=== PATIENT | female | born 1985 | race Caucasian/White ===

== ENCOUNTER → 2017-09-11 11:16 | Outpatient (CLI) | payer OTHER, SELFPAY ==
[2017-09-11 15:03] LABS: Fetal Fibronectin Positive
[2017-09-12 10:49] LABS: Strep Grp B PCR POS for Grp B Strep
== END ==
PROVIDERS: Family Provider Specialist; PCP Specialist; Visit Provider Specialist
DX: O30.003 Twin pregnancy, unspecified number of placenta and unspecified number of amniotic sacs, third trimester (principal); O60.03 Preterm labor without delivery, third trimester
CPT/HCPCS: 82731; 87186; 87653

== ENCOUNTER 2017-09-12 12:13 | Outpatient (CLI) | payer OTHER, SELFPAY ==
[2017-09-12] MEDS: BETAMETHASONE 30 MG/5 ML MDV 12 MG IM (13:17)
--- NOTE | 2017-09-12 13:26 | PM.OBTRLD ---
Visit Information Visit Information Date of evaluation: 09/12/17 Primary OB Provider: Latonya Chavis Reason for Evaluation: Yes non-stress test Comments/Additional reasons for admission: Positive fibronectin vaginal probe yesterday. Diamniotic dichorionic twins breech presentation with thinning cervix by transvaginal ultrasound. Patient also complaining of some mild cramping that comes and goes. Review of Systems Review of Systems Patient currently denies any feeling of contractions. She denies any rupture membranes. Good moved Evaluation Evaluation Baseline heart rate: 150 Variability: Moderate (11-25) (Both twins) monitor accelerations: Present (Both twins) monitor decelerations: Absent Uterine Contraction Intensity: Mild (Irritability on monitor patient not feeling contractions) Diagnosis, Plan/Disposition Final Diagnosis (1) 33 weeks gestation of : Current Visit: Yes Status: Acute (2) Dichorionic diamniotic twin in third trimester: Current Visit: Yes Status: Acute Plan/Disposition Plan: Patient was given betamethasone. She is to return tomorrow for another to the betamethasone injection. Precautions for premature labor were reviewed with the patient. Patient also aware of positive group B strep culture. Given the twins are breech she is aware she may need a if she goes into labor at this point. Given her early gestation she understands we will try to transport her to [facility] if she comes in before 35 weeks.
== END 2017-09-12 13:30 | disposition home or self-care (01) ==
LOC: LABOR 13:21 → OB 09-15 10:10
PROVIDERS: Family Provider Specialist; PCP Specialist; Visit Provider Specialist
DX: O60.03 Preterm labor without delivery, third trimester (principal); O32.1XX0 Maternal care for breech presentation, not applicable or unspecified; O30.043 Twin pregnancy, dichorionic/diamniotic, third trimester; Z3A.33 33 weeks gestation of pregnancy; O26.899 Other specified pregnancy related conditions, unspecified trimester
CPT/HCPCS: 59025; 96372; G0378; G0379; J0702

== ENCOUNTER 2017-09-13 02:41 | Inpatient (IN) | payer OTHER, SELFPAY ==
[2017-09-13] MEDS: MAGNESIUM SULFATE 4 GM/100 ML PIGGYBACK IV (03:50)
[2017-09-13] MEDS: CEFAZOLIN 2 GM/100 ML FROZ.PIGGY IV (03:52)
[2017-09-13] MEDS: LACTATED RINGERS 1,000 ML 125 ML IV (03:52)
--- NOTE | 2017-09-13 03:53 | P.HPOB_ITS ---
OB HPI History of Present Illness Chief complaint: EVALUATION OF LABOR Narrative: Gloria Cuevas is a 32 year old female G2 para 1 at 33 weeks and 2/7. Patient had IVF. Final due date is 10/28/2017. Patient has been followed by Dr. Chavis during her and has had routine care of a dichorionic diamniotic twin . care was complicated recently by history of labor with previous . Patient on 09/11 had decreasing cervical length and had a positive fibronectin. Patient was then brought to Labor and delivery floor this afternoon and given a dose of steroids because of thinning cervix. Patient was not in labor at that time. Patient came into Labor and delivery Department early this morning with back pain and regular contractions since 11 o'clock. No bleeding and no rupture of membranes. Patient's last ultrasound showed the baby's to be in breech breech position. On evaluation she was sp regularly every 3-5 minutes. With moderate uncomfortableness. heart tones of babies were reactive at 130s and 140s. Patient denies a significant past history diabetes hypertension heart disease no history of anemia autoimmune disorders. Past surgical history of wisdom teeth removal This was conceived by IVF conception on 02/05 implantation on 02/09. blood work blood type is B positive HSV 1 positive HSV 2-GC chlamydia negative GBS positive and fibronectin positive Meds Home Medications Medication Instructions Recorded Confirmed Type fluconazole [Diflucan] 150 mg PO QDAY #1 tab 06/13/17 Rx Allergies Allergy/AdvReac Type Severity Reaction Status Date / Time amoxicillin [AMOXICILLIN] Allergy Unknown Unverified 07/23/17 12:34 Pertussis Vaccines Allergy Unknown Unverified 07/23/17 12:34 [PERTUSSIS VACCINES] Exam Narrative Exam Narrative: . General: Alert no apparent distress. Affect is appropriate. Sp it is uncomfortable. HEENT: Neck is supple without lymphadenopathy pupils equal round and reactive. Cardio: S1-S2 regular rate and rhythm. Respiratory: Lungs clear to auscultation. Abdomen: Gravid. Extremities: Normal deep tendon reflexes trace edema. : Cervix 3 cm dilated 90% effaced station -1 to 0 intact membranes [place]: Sp regularly every 3-5 minutes with 60 minute contractions moderate and strength. heart tones: Good heart tones baby a 130s to baby B 140s reactive strip category 1. Assessment and Plan Plan: Plan: 31-year-old G2 para 1 at 33 and 2 7th weeks dichorionic diamniotic twin in active labor breech breech position. Patient had IV started send off for a CBC she is GBS positive she is penicillin allergic she will be started on cefazolin 2 g. She was given 1 dose of IM 0.25 mg of terbutaline when she arrived. Will start her on magnesium 4 mg bolus at 2 milligrams/hour. We talked to [facility] OB hospitalist accepting physician who agreed for receiving the patient and contacted [facility] who will transport the patient. Risks benefits and common complications of transportation delivery and labor were discussed with patient and her . Dr. Arce is the accepting physician.
[2017-09-13] MEDS: MAGNESIUM SULFATE 20 GM/500 ML IV.SOLN IV (04:24)
[2017-09-13 04:38] VITALS: BP 104/65
[2017-09-13 05:15] VITALS: BP 104/65; PULSE 114; RESP 20; TEMP 36.3
[2017-09-13 06:39] VITALS: BP 104/65; PULSE 114; RESP 20; TEMP 36.3
== END 2017-09-13 05:00 | disposition short-term general hospital (02) | DRG 778 ==
PROVIDERS: Admitting Provider Family Medicine; Family Provider Specialist; PCP Specialist; Visit Provider Family Medicine
DX: O60.03 Preterm labor without delivery, third trimester (principal); O32.1XX0 Maternal care for breech presentation, not applicable or unspecified; O30.043 Twin pregnancy, dichorionic/diamniotic, third trimester; Z3A.33 33 weeks gestation of pregnancy
CPT/HCPCS: 59050; 76815; 96360; 96372; 99223; G0378; G0379; J0690; J3475

== ENCOUNTER 2017-10-02 17:13 | Inpatient (IN) | payer OTHER, SELFPAY ==
--- NOTE | 2017-10-02 18:02 | PM.OBHP.1 ---
OB HPI Date/Time Date of admission: 10/02/17 Date Patient Seen: 10/02/17 Time Patient Seen: 18:03 History of Present Illness Chief complaint: EVAL OF LABOR : 2 Para: 1 Estimated Date of Delivery: 10/28/17 Estimated Gestational Age (weeks): 36 wee Narrative: Gloria Cuevas is a 32 year old female with dichorionic diamniotic twins at 35 6-5/7 weeks by dates breech presentation in active labor Indications Operative indications ( section): multiple gestation (Breech presentation) History of Present care: good care Dating criteria: LMP confirmed by 1st trimester US (In vitro fertilization) Ultrasounds: normal mid trimester US Obstetrical complications: labor Medical complications: none Preadmission Labs Blood type: B (+) positive -: Antibody screen: negative, GBS status: positive, HBsAG: negative, HIV: negative, HSV 1: positive, HSV 2: negative and RPR/VDLR: negative -: Chlamydia screen: not detected and Gonorrhea screen: not detected -: Rubella: immune HCAB: negative 1 hr GTT: 127 Prior (ies) History: 04/07/2016 vaginal delivery at 40 weeks labor Evaluation Evaluation Baseline heart rate: 150 (Both) Variability: Moderate (11-25) (Both) monitor accelerations: Present (Both) monitor decelerations: Absent (Both) Category of Tracing: I Cervical dilation (cm): 5 Cervical effacement (%): 100 station: -4 [facility] Social History Smoking Status: Never smoker Meds Home Medications Medication Instructions Recorded Confirmed Type fluconazole [Diflucan] 150 mg PO QDAY #1 tab 06/13/17 Rx Allergies Allergy/AdvReac Type Severity Reaction Status Date / Time amoxicillin [AMOXICILLIN] Allergy Unknown Unverified 07/23/17 12:34 Pertussis Vaccines Allergy Unknown Unverified 07/23/17 12:34 [PERTUSSIS VACCINES] Review of Systems Review of Systems Patient's review of system is negative for concerns. Exam Vital Signs (past 8 hours): HEENT exam within normal limits. Heart is regular rate and rhythm no S3-S4 or murmurs. Lungs are clear to auscultation and percussion. Gravid uterus not that is nontender. Advanced cervical dilation. Assessment and Plan (1) Dichorionic diamniotic twin in third trimester: Current visit: No Status: Acute (2) 36 weeks gestation of : Current visit: Yes Status: Acute (3) Premature labor affecting second : Current visit: Yes Status: Acute Plan: Plan: Patient with dichorionic di amniotic twin gestation with breech presentation at 36-,5/7 weeks by dates with advanced cervical dilation. Primary low-transverse section
[2017-10-02] MEDS: LACTATED RINGERS 1,000 ML 999 ML IV (19:00)
[2017-10-02] MEDS: CLINDAMYCIN 900 MG/50 ML PIGGYBACK 50 MG IV (19:22)
--- NOTE | 2017-10-02 19:31 | SUR.OPER ---
Supine on Padded OR bed, head on pillow, safety belt at thigh, arms secured on padded arm boards at <90 degrees abduction. Bump under right buttock. Legs uncrossed with pillow under knees, gel pad to heels, tape over blanket to lower legs.
[2017-10-02] MEDS: SODIUM CHLORIDE 0.9% IV (19:37)
[2017-10-02] MEDS: GENTAMICIN IV (19:37)
--- NOTE | 2017-10-02 19:52 | PM.PREOP ---
Pre-operative Note Interval Note Pre-op Check: History & Physical exam performed today
[2017-10-02] MEDS: LACTATED RINGERS 1,000 ML 42 ML IV (20:15)
--- NOTE | 2017-10-02 20:34 | SUR.OPER ---
Preoperative heart tones for Baby A=127; Baby [id number]. Live female Baby [id number]; female Baby L=[id number].
[2017-10-02 21:02] VITALS: BP 105/57; PULSE 60; RESP 12; TEMP 36.1; O2SAT 99
--- NOTE | 2017-10-02 21:03 | SUR.OPER ---
APGARS Baby A: , Dr. Wilkes, RT and L&D nurses in attendance (see records) APGARS Baby B: 12/21
[2017-10-02 21:07] VITALS: BP 114/61; PULSE 64; RESP 14; O2SAT 99
[2017-10-02 21:13] VITALS: BP 100/59; PULSE 58; RESP 12; O2SAT 99
[2017-10-02 21:15] LABS: Hepatitis B Surface Antigen NEGATIVE s/c (NEGATIVE); Rubella Antibody IgG 17.7 IU/mL (>15)
[2017-10-02 21:18] VITALS: BP 102/56; PULSE 58; RESP 10; O2SAT 99
--- NOTE | 2017-10-02 21:20 | PM.OP.1 ---
Operative Date/Time/Diagnoses - Date of procedure: 10/02/17 Time of procedure: 21:20 Pre-op diagnosis: Dichorionic diamniotic twins in active labor with breech, breech presentation Post-op diagnosis: same Procedure & Clinicians Procedure: Primary low-transverse section Same procedure as scheduled: Yes Indications: Dichorionic diamniotic twins in breech presentation in active labor Surgeon: Latonya Chavis Gas Leak Inspector: Demetrio Rush Anesthesia Type: Spinal Operative Notes Findings: Normal tubes, ovaries, and uterus. Viable female infants. Baby B's Apgars were 9 and 9, weight 4 lb 15 oz. Baby A's Apgars were 7, 3, 7. Weight is pending. Closure Type: primary Specimen(s): none sent Applied: catheter Estimated Blood Loss (mL): 450 Blood products transfused: none Procedure in detail: The patient was brought to the operating room where she underwent a spinal for anesthesia. She was placed in a supine position with a left lateral tilt. A Canela catheter was placed. Pulsatile stockings were placed and functional throughout the case. Gentamicin and clindamycin given IV prior to the incision. Warming was in place. The patient was prepped and draped in usual sterile fashion. A low transverse incision was made with a scalpel and the incision was carried down to the fascial layer which was incised transversely with scissors. The midline attachments are superiorly and inferiorly. Some bleeding was controlled Bovie. The rectus muscles were in the midline and the peritoneal incision was made with no damage to internal structures. The peritoneum was incised and superiorly and inferiorly. Bladder blade was placed and a bladder flap was developed and the bladder held away from the lower uterine segment. An incision was made in the uterus with the scalpel and the incision was extended with stretching. The baby's buttocks was elevated out of the abdomen and with fundal pressure the baby was delivered to the shoulders and the arms delivered. The head delivered easily. The infant was bulb suctioned for clear fluid and handed off to the warmer. The 2nd amniotic sac was broken and the feet grasped. The infant was delivered to the shoulders. The was rotated and the arms released and then the head delivered easily. Cord blood was collected from both cords. The 2 placentas were delivered. The uterus was cleaned with clean laps. The uterine incision was closed in 2 layers of 0 chromic suture the first a running locking layer the second an imbricating layer. The bladder peritoneum was repaired with 2-0 Polysorb suture. The gutters were cleaned of any remaining fluids and ovaries and tubes were observed to be normal. Adequate hemostasis was noted. The perineum was closed with 2-0 Polysorb suture. The fascia layer was closed with 0 Polysorb suture with 2 stitches. The incision was irrigated and adequate hemostasis noted. The incision was closed with interrupted 3-0 Polysorb sutures and then a subcuticular stitch of 4-0 Polysorb suture. Steri-Strips were placed. The uterus was massaged to remove any clots. The patient went to recovery room in good condion. Counts of instruments and sponges were correct. Complications: none Condition: stable Disposition: PACU
[2017-10-02 21:23] VITALS: BP 100/58; PULSE 57; RESP 10; TEMP 36; O2SAT 99
[2017-10-02 21:25] LABS: HIV 1 and 2 Antibody NEGATIVE (NEGATIVE)
[2017-10-02 21:27] LABS: Add Manual Diff / Slide Review NO; Basophils Percent Auto 0.4 % (0-2); Eosinophils Percent Auto 0.7 % (2-4); Hematocrit 36.7 % (36-46); Hemoglobin 12.5 g/dL (12.0-16.0); Lymphocytes Percent Auto 28.5 % (25-40); Mean Corpuscular HGB Conc 34.1 % (30-36); Mean Corpuscular Hemoglobin 31.4 PG (26-34); Mean Corpuscular Volume 92.1 fL (80-100); Monocytes Percent Auto 8.3 % (3-14); Neutrophils Absolute Auto 5500 /uL (3000-5900); Neutrophils Percent Auto 62.1 % (50-75); Platelet Count 130 X10^3/uL (150-400); Red Blood Cell Count 3.99 X10^6/uL (4.0-5.2); Red Cell Distribution Width 12.9 % (11.6-14.8); White Blood Cell Count 8.9 X10^3/uL (4.5-11.0)
[2017-10-02 21:33] LABS: Hep C Virus Ab w/Reflex Quant NEGATIVE s/c (NEGATIVE)
[2017-10-02] MEDS: LACTATED RINGERS 1,000 ML 100 ML IV (21:49)
[2017-10-03] MEDS: KETOROLAC 30 MG/ML VIAL IV ×3 (03:13→15:03)
[2017-10-03] MEDS: LANOLIN OINT 7 GM 1 APPLIC TOP (03:25)
[2017-10-03 05:36] LABS: Add Manual Diff / Slide Review NO; Basophils Percent Auto 0.1 % (0-2); Hematocrit 25.2 % (36-46); Hemoglobin 8.5 g/dL (12.0-16.0); Lymphocytes Percent Auto 11.4 % (25-40); Mean Corpuscular HGB Conc 33.7 % (30-36); Mean Corpuscular Hemoglobin 31.4 PG (26-34); Mean Corpuscular Volume 93.2 fL (80-100); Monocytes Percent Auto 4.4 % (3-14); Neutrophils Absolute Auto 9300 /uL (3000-5900); Neutrophils Percent Auto 84.1 % (50-75); Platelet Count 108 X10^3/uL (150-400); Red Blood Cell Count 2.71 X10^6/uL (4.0-5.2); Red Cell Distribution Width 12.7 % (11.6-14.8); White Blood Cell Count 11.1 X10^3/uL (4.5-11.0)
[2017-10-03 08:35] VITALS: BP 114/79
[2017-10-03] MEDS: PRENATAL VIT,CALC/IRON/FOLIC 1 TABLET 1 TAB PO (08:59)
[2017-10-03] MEDS: DOCUSATE 250 MG CAPSULE PO (08:59)
--- NOTE | 2017-10-03 09:22 | PM.OBPN.1 ---
Subjective - OB Patient comments: pain well controlled and tolerating diet [place] baby status: doing well (Neither is feeding well) Date Patient Seen: 10/03/17 Time Patient Seen: 07:23 Exam Vital Signs (past 8 hours): Vital Signs - 8 hr Pulse is 71 temperature 97.6? 10/03/17 08:35 Blood Pressure 114/79 Pulse Oximetry 99 Oxygen Delivery Method Room Air Narrative Exam Narrative: Abdomen is soft, nontender. Uterus is firm, at U, not tender. Dressing is clean, dry, intact. Mild lochia. Extremities with trace edema, nontender. Pulsatile stockings are in place. Canela has not been removed yet. GI Palpation: soft Objective Labs Result Diagrams: 10/03/17 05:14 Labs: Laboratory Results - last 24 hr 10/02/17 10/02/17 10/02/17 18:15 18:25 19:51 WBC 8.9 RBC 3.99 L Hgb 12.5 Hct 36.7 MCV 92.1 MCH 31.4 MCHC 34.1 RDW 12.9 Plt Count 130 L Neut % (Auto) 62.1 Lymph % (Auto) 28.5 [place] % (Auto) 8.3 Eos % (Auto) 0.7 L Baso % (Auto) 0.4 Neut # (Auto) 5500 Hep Bs Antigen Hepatitis C Antibody HIV 1&2 Antibody Negative Rubella Antibody Blood Type B Positive Antibody Screen Negative 10/02/17 10/02/17 10/02/17 19:51 19:51 Unknown WBC Cancelled RBC Cancelled Hgb Cancelled Hct Cancelled MCV Cancelled MCH Cancelled MCHC Cancelled RDW Cancelled Plt Count Cancelled Neut % (Auto) Cancelled Lymph % (Auto) Cancelled [place] % (Auto) Cancelled Eos % (Auto) Cancelled Baso % (Auto) Cancelled Neut # (Auto) Cancelled Hep Bs Antigen Negative Hepatitis C Antibody Negative HIV 1&2 Antibody Rubella Antibody 17.7 Blood Type Antibody Screen 10/03/17 05:14 WBC 11.1 H RBC 2.71 L Hgb 8.5 L Hct 25.2 L MCV 93.2 MCH 31.4 MCHC 33.7 RDW 12.7 Plt Count 108 L Neut % (Auto) 84.1 H D Lymph % (Auto) 11.4 L [place] % (Auto) 4.4 Eos % (Auto) 0.0 L Baso % (Auto) 0.1 Neut # (Auto) 9300 H Hep Bs Antigen Hepatitis C Antibody HIV 1&2 Antibody Rubella Antibody Blood Type Antibody Screen Assessment & Plan (1) Dichorionic diamniotic twin in third trimester: Status: Acute Current Visit: No (2) 36 weeks gestation of : Status: Acute Current Visit: Yes (3) Premature labor affecting second : Status: Acute Current Visit: Yes (4) Delivery by section for breech presentation: Status: Acute Assessment and plan: Patient is approximately 12 hr post section for twin gestation breech presentation in labor. Patient is stable. Although there is some difficulty with the babies are stable. Patient is hematocrit is 25, will start iron therapy. Routine post section care. Current Visit: Yes Time Spent With Patient Total time spent is greater than 50% in coordination of care (as documented) at patient's floor/unit and/or counseling patient: less than 15 minutes
[2017-10-03] MEDS: OXYCODONE/ACETAMINOPHEN 5/325 TABLET 2 TAB PO ×3 (10:41→18:49)
[2017-10-03] MEDS: IBUPROFEN 600 MG TABLET PO (22:09)
[2017-10-04] MEDS: OXYCODONE/ACETAMINOPHEN 5/325 TABLET 2 TAB PO ×6 (00:40→23:18)
[2017-10-04] MEDS: IBUPROFEN 600 MG TABLET PO ×4 (04:50→23:19)
[2017-10-04] MEDS: DOCUSATE 250 MG CAPSULE PO (08:22)
[2017-10-04] MEDS: PRENATAL VIT,CALC/IRON/FOLIC 1 TABLET 1 TAB PO (08:22)
[2017-10-04] MEDS: FERROUS GLUCONATE 324 MG TABLET PO (08:22)
--- NOTE | 2017-10-04 10:51 | PM.OBPN.1 ---
Subjective - OB Patient comments: incisional pain baby status: doing well [place] feeding status: exclusively breast feeding Narrative: Patient denies any headaches or scotomata. She is ambulatory. She has a little more incisional pain today but it is tolerable. Her bleeding is minimal. She is tolerating a regular diet. Date Patient Seen: 10/04/17 Time Patient Seen: 10:52 Exam Vital Signs (past 8 hours): Oxygen Delivery Method Room Air Narrative Exam Narrative: Blood pressure 99/58, pulse is 71, temperature 98.2? Abdomen is soft, nontender. Uterus is firm, at U, nontender. Dressing is clean dry and intact. Mild lochia. Extremities without edema, nontender. Objective Labs Result Diagrams: 10/03/17 05:14 Assessment & Plan (1) Dichorionic diamniotic twin in third trimester: Status: Acute Current Visit: No (2) 36 weeks gestation of : Status: Acute Current Visit: Yes (3) Premature labor affecting second : Status: Acute Current Visit: Yes (4) Delivery by section for breech presentation: Status: Acute Current Visit: Yes Plan day: 2 plan OB: routine postop care Time Spent With Patient Total time spent is greater than 50% in coordination of care (as documented) at patient's floor/unit and/or counseling patient: less than 15 minutes
[2017-10-05] MEDS: OXYCODONE/ACETAMINOPHEN 5/325 TABLET 2 TAB PO ×2 (04:27→09:14)
[2017-10-05] MEDS: PRENATAL VIT,CALC/IRON/FOLIC 1 TABLET 1 TAB PO (09:13)
[2017-10-05] MEDS: DOCUSATE 250 MG CAPSULE PO (09:14)
[2017-10-05] MEDS: IBUPROFEN 600 MG TABLET PO (09:14)
--- NOTE | 2017-10-05 11:37 | P.DS_ITS ---
Discharge Providers Date of admission: 10/02/17 22:05 Primary care physician: Latonya Chavis MD Consults: 10/02/17 22:05 Consult to Dean For [employer] Routine Comment: Discharge provider: Latonya Chavis MD Summary Date Patient Seen: 10/05/17 Time Patient Seen: 11:32 Hospital Course: Patient arrived on Labor and delivery in active labor. She had a known dichorionic diamniotic twin gestation with breech presentation. She underwent a primary low-transverse section. She did well . Her pain was under control with pain medicine. She is breast-feeding without difficulty. She is urinating and ambulating well. She is tolerating a regular diet. No signs or symptoms of preeclampsia. She is passing gas. Patient's blood pressure 99/59, pulse of 83, temperature 98.6?. Patient's abdomen is soft, nontender. Uterus is firm, at U, appropriately tender. Incision is clean, dry, and intact. Mild lochia. Extremities with no edema, nontender. Peripartum Data Infant Delivery Method: Section Procedures: Primary low-transverse section complications: none Discharge Diagnosis (1) Delivery by section for breech presentation: Status: Acute (2) Dichorionic diamniotic twin in third trimester: Status: Acute (3) 36 weeks gestation of : Status: Acute (4) Premature labor affecting second : Status: Acute Status at Discharge Functional status at discharge: independent ambulation Overall status at discharge: patient is progressing back to baseline Time Spent with Patient Total time spent providing and/or coordinating discharge services: Less than 30 minutes Objective Labs Result Diagrams: 10/03/17 05:14 Discharge Plan Discharge Plan Patient Disposition: Home, Self-Care Discharge Med Rec/Prescriptions Prescriptions: New oxycodone-acetaminophen 5-325 mg Tablet 2 tab PO Q4HR PRN (Reason: Pain, Severe) Qty: 40 RF: 0 ibuprofen 600 mg Tablet 600 mg PO Q6HR PRN (Reason: As Needed For Fever/Mild Pain) Qty: 30 RF: 0 docusate sodium 250 mg Capsule 250 mg PO DAILY Qty: 30 RF: 0 ferrous gluconate 324 mg (38 mg iron) Tablet 324 mg PO DAILY Qty: 30 RF: 0 Continue 1 tab tablet 1 tab PO DAILY RF: 0 omega 8-byc-yus-fish oil [Fish Oil] 1,000 mg (120 mg-180 mg) Capsule 1 tab PO DAILY RF: 0 Follow up/Referrals: Latonya Chavis MD [Primary Care Provider] - 1 Week Provider Discharge Instructions Diet: Diet as Tolerated Wound Care Report to your healthcare provider any signs of infection, such as:: chills, fever, increased pain and unusual drainage Discharge Data Admit Date/Time: 10/02/17 22:05
[2017-10-05 13:40] VITALS: BP 114/79; PULSE 57; RESP 10; TEMP 36
[2017-10-08 08:50] LABS: Rapid Plasma Reagin NON-REACTIVE
== END 2017-10-05 13:59 | disposition home or self-care (01) | DRG 765 ==
PROVIDERS: Admitting Provider Specialist; Family Provider Specialist; PCP Specialist; Visit Provider Specialist
PROC: 10D00Z1 Extraction of Products of Conception, Low, Open Approach (ICD-10-PCS; CPT 59514; principal; 2017-10-02 20:00)
DX: O60.14X0 Preterm labor third trimester with preterm delivery third trimester, not applicable or unspecified (principal); O30.043 Twin pregnancy, dichorionic/diamniotic, third trimester; O32.1XX0 Maternal care for breech presentation, not applicable or unspecified; Z3A.36 36 weeks gestation of pregnancy; Z37.2 Twins, both liveborn
CPT/HCPCS: 36415; 59050; 59510; 59514; 80055; 85025; 86703; 86803; 86850; 86900; 86901; G0378; G0379; J1885; J2274; J2590

== ENCOUNTER → 2021-09-04 12:34 | Outpatient (CLI) | payer OTHER, SELFPAY ==
[2021-09-04 13:45] LABS: Add Manual Diff / Slide Review NO; Basophils Absolute Auto 0 /uL (0-100); Basophils Percent Auto 0.3 % (0-2); Eosinophils Absolute Auto 100 /uL (0-450); Hematocrit 38.4 % (36-46); Lymphocytes Absolute Auto 2300 /uL (1100-4500); Lymphocytes Percent Auto 22.4 % (25-40); Mean Corpuscular Hemoglobin 29.9 PG (26-34); Mean Corpuscular Volume 88.1 fL (80-100); Monocytes Absolute Auto 500 /uL (0-900); Monocytes Percent Auto 5.1 % (3-14); Neutrophils Absolute Auto 7200 /uL (1500-7000); Neutrophils Percent Auto 71.2 % (50-75); Platelet Count 215 X10^3/uL (150-400); Red Blood Cell Count 4.36 X10^6/uL (4.0-5.2); Red Cell Distribution Width 14.4 % (11.6-14.8); White Blood Cell Count 10.2 X10^3/uL (4.5-11.0)
[2021-09-05 05:43] LABS: RPR Screen Non Reactive (Non Reactive)
[2021-09-05 08:04] LABS: Varicella IgG Antibody 899 index (Immune >165)
[2021-09-06 16:49] LABS: Hepatitis B Surface Antigen NEGATIVE s/c (NEGATIVE); Rubella Antibody IgG 28.2 IU/mL (>15)
[2021-09-06 17:07] LABS: HIV 1 & 2 Ab/Ag 4th Gen Combo NEGATIVE (NEGATIVE); Hep C Virus Ab w/Reflex Quant NEGATIVE s/c (NEGATIVE)
== END ==
PROVIDERS: Family Provider Specialist; Referring Provider Obstetrics & Gynecology; Visit Provider Obstetrics & Gynecology
DX: Z34.81 Encounter for supervision of other normal pregnancy, first trimester (principal)
CPT/HCPCS: 36415; 80055; 86787; 86803; 86850; 86900; 86901; 87389

== ENCOUNTER → 2021-10-04 18:57 | Outpatient (ROUT) | payer OTHER, SELFPAY ==
[2021-10-06 09:49] LABS: Candida species Negative (Negative); Gardnerella vaginalis Negative (Negative); Trichomoas vaginalis Negative (Negative)
== END ==
PROVIDERS: Family Provider Specialist; Visit Provider Physician Assistant Medical
DX: Z34.82 Encounter for supervision of other normal pregnancy, second trimester (principal); Z3A.16 16 weeks gestation of pregnancy; O26.852 Spotting complicating pregnancy, second trimester
CPT/HCPCS: 87480; 87510; 87660

== ENCOUNTER → 2021-10-29 12:14 | Outpatient (CLI) | payer OTHER, SELFPAY ==
--- NOTE | 2021-10-29 12:35 | DI.US.S_ITS ---
PROCEDURE: US OB >= 14 WEEKS FETUS INDICATIONS: ANATOMY OUTSIDE/PRIOR DATING DATA: Last menstrual period (LMP): Unknown. LMP-based estimated date of delivery (MORIAH): Unknown. First dating scan (date and location): 09/04/2021. Estimated date of delivery (MORIAH) from first dating scan: 03/14/2022. TECHNIQUE: Real-time scanning was performed of the fetus, with image documentation and biometric measurements. COMPARISON: [facility], , OB >= 14 WEEKS FETUS, 10/02/2017, 17:04. [facility], , OB <= 14 WEEKS FETUS, 09/04/2021, 12:25. FINDINGS: General: A single living intrauterine gestation is present. Presentation: Transverse. Placenta: Placental position is posterior, with appearance of complete previa previa. Amniotic fluid index: 17.1 cm, normal range is 5-24 cm. Single deepest vertical pocket is 5.7 cm. heart rate: 145 beats per minute. Maternal cervical canal: 4.5 cm long. Normal lower limit is 2.5 cm. biometrics: Biparietal diameter: 5 cm 21 weeks 0 days Head circumference: 18.4 cm 20 weeks 5 days Abdominal circumference: 15.6 cm 20 weeks 5 days Femur length: 3.4 cm 20 weeks 6 days Composite gestational age from initial scan: 20 weeks 4 days Composite gestational age from present scan: 20 weeks 6 days Estimated weight and percentile: 376 g 56 percentile Anatomic survey: Neuro: Ventricles are non-dilated at less than 10 mm. Cisterna magna is normal at 3-11 mm. Cerebellum is normal in size and morphology. Nuchal skin fold: Normal at less than 6 mm between 14-21 weeks gestational age. Face: Nose and lips, facial profile are normal. Spine: No evidence for spina bifida. Heart: 4-chambered heart is present, with normal ventricular outflow tracts. Diaphragm: Diaphragm is intact. Stomach: Left-sided stomach is present. Kidneys: No hydronephrosis. Normal is less than 5 mm in 2nd trimester, less than 7 mm in 3rd trimester. Cord: 3-vessel cord has orthotopic insertion. Bladder: Normal in size. Extremities: All 4 extremities identified. IMPRESSION: Single live intrauterine with ultrasound gestational age today of 20 weeks 6 days. Anatomy is within normal limits. Complete placental previa is noted. Close interval follow-up is recommended. We strive to produce accurate, complete, and clear reports of imaging services. To assist us in improving patient care, this report was composed using standard report templates and voice recognition software. Therefore, it may contain abnormal punctuation, insertions and/or omissions. Occasional wrong-word or sound-alike substitutions may occur. Though we review the report and make efforts to correct it, we do recommend that the report be read carefully in proper context to recognize any text inaccuracies. Dictated by: Zayda Beard M.D. on 10/29/2021 at 16:56 Approved by: Zayda Beard M.D. on 10/29/2021 at 16:59
== END ==
PROVIDERS: Family Provider Specialist; Referring Provider Obstetrics & Gynecology; Visit Provider Obstetrics & Gynecology
DX: O44.02 Complete placenta previa NOS or without hemorrhage, second trimester (principal); Z3A.20 20 weeks gestation of pregnancy
CPT/HCPCS: 76811

== ENCOUNTER → 2021-12-04 10:24 | Outpatient (CLI) | payer OTHER, SELFPAY | PROVIDERS: Family Provider Specialist; Visit Provider Obstetrics & Gynecology | DX: Z34.82 Encounter for supervision of other normal pregnancy, second trimester (principal); Z3A.25 25 weeks gestation of pregnancy | CPT/HCPCS: 87086 ==

== ENCOUNTER → 2022-02-21 13:50 | Outpatient (CLI) | payer OTHER, SELFPAY ==
[2022-02-22 15:27] LABS: Strep Grp B PCR NEG for Grp B Strep
== END ==
PROVIDERS: Family Provider Specialist; Visit Provider Obstetrics & Gynecology
DX: Z34.83 Encounter for supervision of other normal pregnancy, third trimester (principal); Z3A.36 36 weeks gestation of pregnancy
CPT/HCPCS: 87653

== ENCOUNTER 2022-03-08 07:53 | Inpatient (IN) | payer OTHER, SELFPAY ==
[2022-03-08] VITALS (12 sets, daily range): BP systolic 83–109; BP diastolic 49–72; PULSE 63–81; RESP 14–22; TEMP 36.2–36.8; O2SAT 94–98
[2022-03-08 09:22] LABS: Add Manual Diff / Slide Review NO; Basophils Absolute Auto 0 /uL (0-100); Basophils Percent Auto 0.5 % (0-2); Eosinophils Absolute Auto 200 /uL (0-450); Eosinophils Percent Auto 1.5 % (2-4); Hematocrit 36.8 % (36-46); Hemoglobin 12.4 g/dL (12.0-16.0); Lymphocytes Absolute Auto 2200 /uL (1100-4500); Mean Corpuscular HGB Conc 33.8 % (30-36); Mean Corpuscular Hemoglobin 30.3 PG (26-34); Mean Corpuscular Volume 89.7 fL (80-100); Monocytes Absolute Auto 700 /uL (0-900); Monocytes Percent Auto 6.5 % (3-14); Neutrophils Absolute Auto 7400 /uL (1500-7000); Neutrophils Percent Auto 70.5 % (50-75); Platelet Count 160 X10^3/uL (150-400); Red Cell Distribution Width 14.7 % (11.6-14.8); White Blood Cell Count 10.5 X10^3/uL (4.5-11.0)
[2022-03-08 09:38] LABS: COVID19 -Nasal RAPID Negative (Negative)
--- NOTE | 2022-03-08 09:48 | P.HPOB_ITS ---
OB HPI Date/Time Date of admission: 03/08/22 Date Patient Seen: 03/08/22 Time Patient Seen: 09:49 History of Present Condition Chief complaint: induction MORIAH Calculator Estimated Delivery Date Method Current WG Current Estimate 03/16/22 Manual 38w 6d Based on em bryo transfer Other Estimates 03/14/22 Ultrasound #1 39w 1d 03/21/22 Conception 38w 1d Estimated Gestational Age (weeks): 39 : 3 Para: 2 care: initiated at week # (12), number of visits (7) and pounds weight gain (40) Dating criteria OB: LMP confirmed by 1st trimester US Ultrasounds: normal 1st trimester US and normal mid trimester US Obstetrical complications: none Medical complications OB: none Indications Operative indications ( section): previous uterine surgery Preadmission Labs Last OB Lab Results: Blood Type B Positive 09/04/21 12:51 Antibody Screen Negative 09/04/21 12:51 Hematocrit 36.8 % (36-46) 03/08/22 08:25 Hemoglobin 12.4 g/dL (12.0-16.0) 03/08/22 08:25 Hepatitis B Surface Antigen Negative s/c (NEGATIVE) 09/04/21 12 :51 Hepatitis C Antibody Negative s/c (NEGATIVE) 09/04/21 12:51 Rubella Antibody 28.2 IU/mL (>15) 09/04/21 12:51 Varicella-Zoster IgG Antibody 899 index (Immune >165) 09/04/21 12:51 Glucose 1 Hour 127 mg/dL (76-139) 08/18/17 12:08 Group B Streptococcus (PCR) Neg for grp b strep 02/21/22 13:50 -: Chlamydia screen: negative, Gonorrhea screen: negative and Urine: negative -: PAP smear: Normal External Labs -: Urine: negative Prior (ies) Past Pregnancies Del. Date GA/Weeks Labor Lgth Wt Sex Route Outcome Anesthesia Place Delv Breastfeed Preg Comp Name 04/07/16 39 1 6 lb 8 oz Female vaginal live - full term none IH labor Ajay 10/02/17 36 5 lb Female live - spinal IH labor multiple gestation Grace, Aneta Evaluation Evaluation Baseline heart rate: 135 Variability: Moderate (11-25) monitor accelerations: Present Monitor Decelerations: Absent PFSH Medical History (Updated 02/27/22 @ 22:18 by Sallie Horn MD) Anemia Infertility Premature labor in third trimester Vaginal delivery Surgical History (Updated 09/04/21 @ 15:39 by Sallie Horn MD) Anesthesia Delivery by section for breech presentation (~10/02/17) [place] teeth extracted (~2008) Family History (Updated 08/27/21 @ 23:09 by Maricruz Frank) Father Diabetes mellitus Heart disease Mother Pancreatic cancer Grandfather Colon cancer Grandmother Pneumonia Grandfather Heart disease Social History marital status: number of children: 3 household members: spouse and children lives independently: Yes housing: house pets and animals: Yes (Wears gloves and particle mask when changing litter or cleaning bird cage.) education level: college (Associate's degree) occupational status: employed ([employer]) current occupational exposures/hazards: No seatbelt use: always water heater temp set < 120 deg: Yes (Will check and change if needed.) working smoke detector in home: Yes fire extinguisher in home: Yes carbon monox detector in home: Yes firearms in home: Yes firearms unloaded and locked: Yes do you feel safe at home: Yes Smoking Status: Never smoker second hand exposure: No alcohol intake: former substance use type: does not use during the past year weight has: decreased > 10 lbs well-balanced diet: daily or most days daily servings fruits/ve-4 caffeine: Yes Type(s) of exercise: walking Meds Home Medications and Allergies Home Medications Medication Instructions Recorded Confirmed Type 1 tab PO DAILY 10/02/17 02/28/22 History omega 7-hxz-rqv-fish oil 1,000 mg 1 tab PO DAILY 10/02/17 02/28/22 History (120 mg-180 mg) capsule (Fish Oil) Allergies Allergy/AdvReac Type Severity Reaction Status Date / Time Pertussis Vaccines Allergy Severe Seizure Verified 02/28/22 14:53 [PERTUSSIS VACCINES] amoxicillin [AMOXICILLIN] Allergy Intermediate Hives Verified 02/28/22 14:53 cefazolin [From Ancef] Allergy Intermediate Hives Verified 02/28/22 14:53 OB Exam Narrative Exam Narrative: Generally: Patient is sitting up in bed, no acute distress Lungs: Clear to auscultation bilaterally Cardiovascular: Regular rate and rhythm Fundal height: 39 cm Estimated weight: 7-1/2 lb Abdomen: Well-healed Pfannenstiel Extremities: No edema Objective Labs Result Diagrams: 03/08/22 08:25 Labs: Laboratory Results - last 24 hr 03/08/22 03/08/22 08:08 08:25 WBC 10.5 RBC 4.10 Hgb 12.4 Hct 36.8 MCV 89.7 MCH 30.3 MCHC 33.8 RDW 14.7 Plt Count 160 Neut % (Auto) 70.5 Lymph % (Auto) 21.0 L Iron % (Auto) 6.5 Eos % (Auto) 1.5 L Baso % (Auto) 0.5 Neut # (Auto) 7400 H Lymph # (Auto) 2200 Iron # (Auto) 700 Eos # (Auto) 200 Baso # (Auto) 0 SARS-CoV-2 (PCR) Negative Assessment and Plan Assessment and Plan Assessment and Plan narrative: Assessment: 36-year-old 3 para 1103 with a previous section Estimated gestational age of 39 weeks Plan: Repeat low-transverse section The risks, benefits, and alternatives to the procedure were explained to the patient. The risks including bleeding, infection, injury to the bowel, bladder, or ureters. She understands these risks and agrees to proceed. A full par Q was held and consent form was signed. Time Spent with Patient Total time spent with greater than 50% in coordination of care (as documented) at patient's floor/unit and/or counseling patient:: less than 15 minutes
--- NOTE | 2022-03-08 09:53 | PM.PREOP ---
Pre-operative Note COVID-19 COVID-19 status: Negative Result date/Date tested (Pos, Neg/Pending): 03/08/22 Criteria for continued procedure: Non-surgical alternatives not available or appropriate per current SOC Interval Note History & Physical reviewed/Exam performed by Physician: Yes Changes to H&P: No H&P completed within 30 days and has changed as indicated here:: 03/08/22
[2022-03-08] MEDS: CEFAZOLIN 2 GM/100 ML PREMIX 100 ML IV (10:00)
--- NOTE | 2022-03-08 10:32 | SUR.OPER ---
Supine on padded OR bed, head on pillow, arms secured on padded arm boards at <90 degrees abduction, legs uncrossed, safety belt at thigh, bump under right flank
--- NOTE | 2022-03-08 11:24 | P.OP_ITS ---
Operative Date/Time/Diagnoses Date of procedure: 03/08/22 Time of procedure: : Pre-op diagnosis: Estimated gestational age of 39 weeks Previous section Post-op diagnosis: same Procedure & Clinicians Procedure: Repeat low-transverse section Same procedure as scheduled: Yes Indications: Estimated gestational age of 39 weeks Previous section Surgeon: Sallie Horn Click Yes if Unassisted: No Tractor Trailer Truck Driver: Daniel Manning Reason for Tractor Trailer Truck Driver: The laundry assistant was necessary to retract upon entry into the abdomen and uterus. He assisted with delivery of the infant with fundal pressure. He assisted with closure by retracting and clipping suture. He closed the contralateral fascia. Anesthesia Type: Spinal (With Duramorph) Operative Notes Findings: Live female in the ERIN presentation Normal tubes and ovaries Normal uterus Closure Type: primary Specimen(s): cord blood and placenta Intraoperative meds administered: Duramorph, Ketorolac and Pitocin Applied: Catheter (To continuous drainage) Estimated Blood Loss (mL): 500 Blood products transfused: none Procedure in detail: The patient was taken to the operating room where she was placed in the seated position. Spinal anesthesia with Duramorph was administered. The patient was then placed in the dorsal supine position with a leftward tilt. She was prepped and draped in the usual sterile fashion. A timeout was performed. After spinal analgesia was found to be adequate, a Pfannenstiel skin incision was made through the previous incision and carried through to the underlying layer fascia. The fascia was nicked in the midline, and the incision extended bilaterally with the Rodriguez scissors. The superior aspect of the fascial incision was grasped with a Deandra clamps, elevated, and the underlying rectus muscles dissected off sharply and bluntly. Attention was then turned to the inferior aspect of this incision which in a similar fashion was grasped with a [place] clamps, elevated, and the underlying rectus muscles dissected off sharply and bluntly. The rectus muscles were in the midline. The peritoneum was identified, grasped between 2 hemostats, and entered sharply with the Metzenbaum scissors. This incision was extended superiorly and inferiorly with good visualization of the bladder. The bladder blade was inserted. The vesicouterine peritoneum was identified, grasped with the pickup, and entered sharply with the Metzenbaum scissors. This incision was extended bilaterally, and the bladder flap was created digitally. The bladder blade was reinserted. The lower uterine segment was incised in a transverse fashion with the scalpel. Upon entering the amniotic sac there was moderate amount of clear amniotic fluid. The infant's head was delivered with vacuum assistance. The nose and mouth were suctioned with bulb suction. The remainder of the body delivered without difficulty. The cord was double clamped and cut after 1 minute. The infant was handed off to waiting RN and RT. The placenta was delivered by expression. The uterus was cleared of all clots and debris. The uterine inci dariela was repaired with #1 chromic in a running interlocking fashion, and a second layer the same suture was used for an imbricating layer. Hemostasis was achieved. The tubes and ovaries were examined and were found to be normal. The gutters were cleared of all clots and debris. The bladder flap was reapproximated using 2-0 Vicryl in a running fashion. The parietal peritoneum was closed using 2-0 Vicryl in a running fashion. The fascia was reapproximated using 0 Vicryl in a running fashion. The subcutaneous layer was copiously irrigated with warm normal saline. 5 simple interrupted sutures of 3-0 Vicryl were placed to reapproximate the subcutaneous layer. The skin was closed with 4-0 undyed Vicryl in a subcuticular fashion. Steri-Strips were placed. An Aquacell dressing was placed. The uterus was expressed of a small amount of old blood. Sponge, lap, and instrument counts were correct x-2. The patient tolerated the procedure well, and was taken to PACU in stable condition. Complications: none Baby 1: Gender: Female Presentation: vertex Position: Right Occiput Anterior Placental Delivery Description: Expressed Cord Vessel Description: 3 Vessels and Clamped/Cut (After 1 minute) score (1 min): 9 score (5 min): 9 weight: 7 lb 15.7 oz Post-operative Condition: stable Disposition: PACU Aftercare: routine postop
[2022-03-08] MEDS: LACTATED RINGERS 1,000 ML 100 ML IV (13:17)
[2022-03-08] MEDS: KETOROLAC 30 MG/ML VIAL IV ×2 (16:45→22:52)
[2022-03-09] MEDS: KETOROLAC 30 MG/ML VIAL IV (06:28)
[2022-03-09 07:26] LABS: Hematocrit 30.2 % (36-46); Hemoglobin 10.2 g/dL (12.0-16.0)
[2022-03-09] MEDS: ACETAMINOPHEN 325 MG TABLET 650 MG PO ×3 (09:03→23:05)
[2022-03-09] MEDS: PRENATAL VIT,CALC/IRON/FOLIC 1 TABLET 1 TAB PO (09:03)
[2022-03-09] MEDS: DOCUSATE 100 MG CAPSULE 200 MG PO (09:03)
[2022-03-09] MEDS: IBUPROFEN 600 MG TABLET PO ×3 (12:24→23:06)
[2022-03-10] MEDS: IBUPROFEN 600 MG TABLET PO ×2 (05:03→12:49)
[2022-03-10] MEDS: ACETAMINOPHEN 325 MG TABLET 650 MG PO ×2 (05:04→12:50)
[2022-03-10] MEDS: DOCUSATE 100 MG CAPSULE 200 MG PO (08:58)
[2022-03-10] MEDS: PRENATAL VIT,CALC/IRON/FOLIC 1 TABLET 1 TAB PO (08:58)
--- NOTE | 2022-03-10 12:20 | PM.OBDS.1 ---
Discharge Providers Provider Date of admission: 03/08/22 07:53 Discharge Date: 03/10/22 Primary care physician: Doctor Froylan MD Consults: 03/08/22 11:28 Consult to Composite Boat Builder Routine Comment: 03/08/22 14:20 Consult to Composite Boat Builder Routine Comment: Discharge provider: Daniel Manning MD Summary Hospital Course Date Patient Seen: 03/10/22 Time Patient Seen: 12:20 Diagnoses: Intrauterine gestation, lilly, 38+6 weeks EGA Prior section Hospital Course: Gloria was admitted for repeat section on morning of 03/08/2022. Later on that morning she underwent an uneventful repeat section via low transverse cervical incision. Details of the procedure well summarized on Dr. Christel Horn's operative note of that date. Following delivery the patient has done extremely well with prompt return of bowel and bladder function, she is remained afebrile and normotensive, she is ambulating independently, tolerating regular diet, and her pain is well relieved with oral pain medications. She be discharged this time to home after counseling regarding precautionary symptoms, limitations activity, medications, plans follow-up. Medications at discharge will include oxycodone 5 mg p.o. Q 6 hours as needed pain #10, ibuprofen 600 mg p.o. every 6 hours as needed for pain #60 w/ 2 refills. She will continue her vitamins and also use [id number]-[id number] Tylenol as needed for pain relief. Follow-up for incision check will be with Dr. Horn 1 week. Peripartum Data Infant Delivery Method: Section Laceration Description: None Episiotomy description: None complications: none 1: Gender: Female Disposition of : home Status at Discharge Cognitive/behavioral status at discharge: oriented Functional status at discharge: independent ambulation Overall status at discharge: patient is progressing back to baseline Time Spent with Patient Time attestation: Total time spent providing and/or coordinating discharge services: Time spent: Less than 30 minutes Objective Labs Result Diagrams: 03/09/22 06:51 Exam Vital Signs (past 8 hours): Oxygen Delivery Method Room Air Const General: cooperative and comfortable Nutritional Appearance: average body habitus Orientation: alert and oriented x3 HENMT Head: normal to inspection, atraumatic and abrasion Ears: hearing grossly normal bilaterally Face and sinus: face symmetric Eyes General: appearance normal, both eyes and all related structures Conjunctivae: conjunctivae normal Sclera: sclerae normal EOM: EOM intact bilaterally Neck Neck: normal visual inspection Resp Effort & Inspection: normal respiratory effort and able to speak in complete sentences Auscultation: clear to auscultation bilaterally Cardio Rate: regular rate Rhythm: regular rhythm Heart Sounds: S1 normal, S2 normal and no murmurs GI Inspection: normal to inspection and incision (Surgical dressing clean and dry, minimal seepage) Palpation: soft, no hepatosplenomegaly, mass (Firm, minimally tender fundus, U-5) and tender (Mild, diffuse postsurgical tenderness) Auscultation: normal bowel sounds External Female Exam: other (No significant bleeding noted) Extrem General: no calf tenderness Psych Appearance: grossly normal Mental Status: mental status grossly normal Speech and Movement: speech and movement normal Mood: congruent mood Affect: normal affect Attitude: cooperative Thought Process: normal Thought Content: normal Judgment: judgment good Discharge Plan Discharge Plan Patient Disposition: Home Provider Discharge Comment: Please review the written instructions you received when you were released from the hospital. Your follow-up appointment with Dr. Horn will be scheduled for 1 week following your . If in the meanwhile however you have any issues, concerns, or questions for Dr. Horn, please contact our office at [phone] or via the patient. Discharge orders & Medications Prescriptions: New ibuprofen 600 mg Tablet 600 mg PO Q6H PRN (Reason: Fever/Mild Pain (1-3)) Qty: 60 2RF oxycodone 5 mg Tablet 5 mg PO Q4H PRN (Reason: Pain, Moderate (4-6)) Qty: 10 0RF Continued 1 tab tablet 1 tab PO DAILY omega 1-dle-kyh-fish oil [Fish Oil] 1,000 mg (120 mg-180 mg) Capsule 1 tab PO DAILY Follow up/Referrals: Sallie Horn MD [Physician] - (call Friday to make appointment for 1 week incision check) Miscellimtiaz,MD Moreno [Primary Care Provider] - Discharge Health Status Multidrug resistant organism: No MDRO Diet/Activity/Treatments Diet: Diet as Tolerated Activity: As tolerated Skin/Wound/Dressing Care Report to your healthcare provider any signs of infection, such as:: chills, fever, increased pain, unusual drainage and unusual redness Dressing: N/A Visit Report/Discharge Packet Instructions: DI for , DI for and Nipple Soreness Stand Alone Forms: Discharge: Care Discharge Data Primary Care Provider: Miscellaneous,Doctor
== END 2022-03-10 13:30 | disposition home or self-care (01) | DRG 788 ==
PROVIDERS: Admitting Provider Obstetrics & Gynecology; Family Provider Specialist; Referring Provider Obstetrics & Gynecology; Visit Provider Obstetrics & Gynecology
PROC: 10D00Z1 Extraction of Products of Conception, Low, Open Approach (ICD-10-PCS; CPT 59514; principal; 2022-03-08 09:45)
DX: O34.211 Maternal care for low transverse scar from previous cesarean delivery (principal); Z3A.39 39 weeks gestation of pregnancy; Z37.0 Single live birth; Z20.822 Contact with and (suspected) exposure to COVID-19
CPT/HCPCS: 36415; 59050; 59510; 59514; 85014; 85018; 85025; 86850; 86900; 86901; 87635; C9803; G0379; J0690; J1885; J2274; J2405; J2590; J3010

== ENCOUNTER → 2023-11-05 14:44 | Outpatient (CLI) | payer OTHER, SELFPAY ==
[2023-11-05 18:32] LABS: Urine N gonorrhoeae NOT DETECTED
[2023-11-05 19:14] LABS: Urine Chlamydia NOT DETECTED
== END ==
PROVIDERS: Family Provider Specialist; Referring Provider Specialist; Visit Provider Specialist
DX: Z11.3 Encounter for screening for infections with a predominantly sexual mode of transmission (principal); Z3A.08 8 weeks gestation of pregnancy
CPT/HCPCS: 87491; 87591

== ENCOUNTER → 2023-12-05 10:27 | Outpatient (CLI) | payer OTHER, SELFPAY ==
[2023-12-05 11:28] LABS: Add Manual Diff / Slide Review NO; Basophils Absolute Auto 0 /uL (0-100); Basophils Percent Auto 0.1 % (0-2); Eosinophils Absolute Auto 100 /uL (0-450); Hematocrit 38.8 % (36-46); Hemoglobin 13.1 g/dL (12.0-16.0); Lymphocytes Absolute Auto 2100 /uL (1100-4500); Lymphocytes Percent Auto 27.8 % (25-40); Mean Corpuscular HGB Conc 33.7 % (30-36); Mean Corpuscular Hemoglobin 30.2 PG (26-34); Mean Corpuscular Volume 89.5 fL (80-100); Monocytes Absolute Auto 500 /uL (0-900); Monocytes Percent Auto 6.4 % (3-14); Neutrophils Absolute Auto 5000 /uL (1500-7000); Neutrophils Percent Auto 64.7 % (50-75); Platelet Count 191 X10^3/uL (150-400); Red Blood Cell Count 4.34 X10^6/uL (4.0-5.2); Red Cell Distribution Width 14.1 % (11.6-14.8); White Blood Cell Count 7.7 X10^3/uL (4.5-11.0)
[2023-12-05 12:25] LABS: Hepatitis B Surface Antigen NEGATIVE s/c (NEGATIVE); Rubella Antibody IgG 32.9 IU/mL (>15)
[2023-12-05 12:42] LABS: HIV 1 & 2 Ab/Ag 4th Gen Combo NEGATIVE (NEGATIVE); Hep C Virus Ab w/Reflex Quant NEGATIVE s/c (NEGATIVE)
[2023-12-06 06:10] LABS: RPR Screen Non Reactive (Non Reactive)
[2023-12-06 10:12] LABS: Varicella IgG Antibody 823 index (Immune >165)
== END ==
LOC: LAB 10:28
PROVIDERS: Family Provider Specialist; Referring Provider Specialist; Visit Provider Specialist
DX: O09.819 Supervision of pregnancy resulting from assisted reproductive technology, unspecified trimester (principal)
CPT/HCPCS: 36415; 80055; 86787; 86803; 86850; 86900; 86901; 87086; 87147; 87389

== ENCOUNTER → 2024-01-16 10:31 | Outpatient (CLI) | payer OTHER, SELFPAY ==
[2024-01-17 15:41] LABS: Candida species Positive (Negative); Gardnerella vaginalis Negative (Negative); Trichomoas vaginalis Negative (Negative)
== END ==
PROVIDERS: Family Provider Specialist; Visit Provider Obstetrics & Gynecology
DX: N89.8 Other specified noninflammatory disorders of vagina (principal)
CPT/HCPCS: 87480; 87510; 87660

== ENCOUNTER → 2024-01-28 12:44 | Outpatient (CLI) | payer OTHER, SELFPAY ==
--- NOTE | 2024-01-28 12:47 | DI.US.S_ITS ---
PROCEDURE: US OB >= 14 WEEKS FETUS INDICATIONS: 20 Week Anatomy Scan OUTSIDE/PRIOR DATING DATA: Estimated date of delivery based on IVF conception: 06/16/2024. TECHNIQUE: Real-time scanning was performed of the fetus, with image documentation and biometric measurements. Endovaginal scanning: Not performed [facility] 14 WEEKS [facility], 12/[facility], 10:22. FINDINGS: General: A single living intrauterine gestation is present. Presentation: Vertex. Placenta: Placental position is anterior, without previa. Amniotic fluid index: 18.4 cm, normal range is 5-24 cm. Single deepest vertical pocket is 5.2 cm. heart rate: 128 beats per minute. Maternal cervical canal: 4.3 cm long. Normal lower limit is 2.5 cm. biometrics: Biparietal diameter: 5.1 cm, 21 weeks 3 days Head circumference: 18.3 cm, 20 weeks 5 days Abdominal circumference: 16.6 cm, 21 weeks 4 days Femur length: 3.3 cm, 20 weeks 2 days Clinically estimated gestational age: 20 weeks 0 days Composite gestational age from present scan: 21 weeks 0 days Estimated weight and percentile: 393 g, 93rd percentile Anatomic survey: Neuro: Ventricles are non-dilated at less than 10 mm. Cisterna magna is normal at 3-11 mm. Cerebellum is normal in size and morphology. Nuchal skin fold: Normal at less than 6 mm between 14-21 weeks gestational age. Face: Nose and lips, facial profile are normal. Spine: No evidence for spina bifida. Heart: 4-chambered heart is present, with normal ventricular outflow tracts. Diaphragm: Diaphragm is intact. Stomach: Left-sided stomach is present. Kidneys: No hydronephrosis. Normal is less than 5 mm in 2nd trimester, less than 7 mm in 3rd trimester. Cord: 3-vessel cord has orthotopic insertion. Bladder: Normal in size. Extremities: All 4 extremities identified. IMPRESSION: 1. Baker living intrauterine at 20 weeks 0 days based on IVF MORIAH. Fetus is in the 93rd percentile for weight. 2. Normal placenta and amniotic fluid. 3. Normal and complete anatomic survey. We strive to produce accurate, complete, and clear reports of imaging services. To assist us in improving patient care, this report was composed using standard report templates and voice recognition software. Therefore, it may contain abnormal punctuation, insertions and/or omissions. Occasional wrong-word or sound-alike substitutions may occur. Though we review the report and make efforts to correct it, we do recommend that the report be read carefully in proper context to recognize any text inaccuracies. Dictated by: Hood Cohen M.D. on 01/28/2024 at 20:16 Approved by: Hood Cohen M.D. on 01/28/2024 at 20:22
== END ==
LOC: US 12:47
PROVIDERS: Family Provider Specialist; Referring Provider Obstetrics & Gynecology; Visit Provider Obstetrics & Gynecology
DX: Z3A.20 20 weeks gestation of pregnancy (principal); Z36.89 Encounter for other specified antenatal screening
CPT/HCPCS: 76811

== ENCOUNTER 2024-05-21 10:45 | Outpatient (CLI) | payer OTHER, SELFPAY | END 2024-05-21 11:34 | disposition home or self-care (01) | LOC: LABOR 10:51 → OB 15:49 | PROVIDERS: Family Provider Specialist; Referring Provider Obstetrics & Gynecology; Visit Provider Obstetrics & Gynecology | DX: O09.523 Supervision of elderly multigravida, third trimester (principal); O09.813 Supervision of pregnancy resulting from assisted reproductive technology, third trimester; Z3A.36 36 weeks gestation of pregnancy | CPT/HCPCS: 59025; G0378; G0379 ==

== ENCOUNTER 2024-06-02 11:06 | Outpatient (CLI) | payer OTHER, SELFPAY | END 2024-06-02 11:41 | disposition home or self-care (01) | LOC: LABOR 11:13 → OB 14:12 | PROVIDERS: Family Provider Specialist; Referring Provider Obstetrics & Gynecology; Visit Provider Obstetrics & Gynecology | DX: O09.813 Supervision of pregnancy resulting from assisted reproductive technology, third trimester (principal); O09.523 Supervision of elderly multigravida, third trimester; Z3A.38 38 weeks gestation of pregnancy | CPT/HCPCS: 59025; G0378; G0379 ==

== ENCOUNTER 2024-06-10 05:44 | Inpatient (IN) | payer OTHER, SELFPAY ==
--- NOTE | 2024-06-10 | PATH_ITS ---
[facility] Accession Number: [id number] No. of containers..01 Tissue . 01 Material submitted: . fallopian tube - BILATERAL FALLOPIAN TUBES . 01 Diagnosis: BILATERAL FALLOPIAN TUBES: Segments of fallopian tubes x4 (includes two fimbriated segments) with patchy decidualized stromal change; negative for significant atypia. Detached fragment of fibromembranous tissue consists of fibrovascular tissue with decidualized stromal change. MRV 06/15/2024 0952 Local . 01 Electronically signed: . Magi Adair MD, Pathologist NPI- [id number] . 01 Gross description: . Received in formalin labeled with two patient identifiers and bilateral fallopian tubes, and consists of four fragmented segments of focally edematous fallopian tubes ranging from 1.0 cm in length by 0.8 cm in diameter up to 4.0 cm in length and up to 0.9 cm in diameter. Segments of fragmented fallopian tubes have a fimbriated end and the serosal surfaces are diffusely hemorrhagic with fibrous adhesions. Sectioning shows a focally dilated lumen measuring up to 0.4 cm in diameter. Also received in the same container is a 5.5 x 3.0 x 1.0 cm diffusely hemorrhagic and focally edematous fibromembranous tissue. Field Service Tech sections are submitted as labeled: A1: Cross-section of edematous segment of fallopian tube. A2: Cross-section of additional segment of fallopian tube. A3: Fimbriated end, entirely submitted. A4: Additional fimbriated end, entirely submitted. A5: Field Service Tech section of fimbromembranous edematous tissue. ([id number]) /MAX 06/11/2024 1200 Local . 01 Pathologist provided ICD-10: Z98.891, Z3A.39 . 01 [facility] . [id number] Specimen Comment: A courtesy copy of this report has been sent to [phone] Performed at: [address] [id number] MD Edward Hope MD Phone: [phone]
[2024-06-10 06:36] LABS: Add Manual Diff / Slide Review NO; Basophils Absolute Auto 0 /uL (0-100); Basophils Percent Auto 0.4 % (0-2); Eosinophils Absolute Auto 100 /uL (0-450); Eosinophils Percent Auto 1.1 % (2-4); Hematocrit 41.7 % (36-46); Hemoglobin 13.8 g/dL (12.0-16.0); Lymphocytes Absolute Auto 2500 /uL (1100-4500); Lymphocytes Percent Auto 30.2 % (25-40); Mean Corpuscular Hemoglobin 30.7 PG (26-34); Monocytes Absolute Auto 600 /uL (0-900); Monocytes Percent Auto 7.5 % (3-14); Neutrophils Absolute Auto 5000 /uL (1500-7000); Neutrophils Percent Auto 60.8 % (50-75); Platelet Count 142 X10^3/uL (150-400); Red Blood Cell Count 4.49 X10^6/uL (4.0-5.2); Red Cell Distribution Width 13.9 % (11.6-14.8); White Blood Cell Count 8.2 X10^3/uL (4.5-11.0)
--- NOTE | 2024-06-10 07:32 | P.HPOB_ITS ---
OB HPI Date/Time Date of admission: 06/10/24 Date Patient Seen: 06/10/24 Time Patient Seen: 07:32 History of Present Condition Chief complaint: INPT MORIAH Calculator 2 Estimated Delivery Date Method Current WG Current Estimate 06/16/24 Conception 39w 1d Estimated Gestational Age (weeks): 39+1 : 4 Para: 3 Narrative: Patient is a 38-year-old 4 para 3 at 39-,1/7 weeks gestation with 3 prior sections. care: good care, initiated at week # (8), number of visits (9) and pounds weight gain (35) Dating criteria OB: LMP confirmed by 1st trimester US Ultrasounds: normal 1st trimester US and normal mid trimester US Obstetrical complications: none Medical complications OB: none Indications Operative indications ( section): previous uterine surgery Preadmission Labs Last OB Lab Results: 2 Blood Type B Positive 06/10/24 06:20 Antibody Screen Negative 06/10/24 06:20 Hct 41.7 % (36-46) 06/10/24 06:20 Hgb 13.8 g/dL (12.0-16.0) 06/10/24 06:20 Hep Bs Antigen Negative s/c (NEGATIVE) 12/05/23 10:32 Hepatitis C Antibody Negative s/c (NEGATIVE) 12/05/23 10:32 Rubella Antibody 32.9 IU/mL (>15) 12/05/23 10:32 VZV IgG Antibody 823 index (Immune >165) 12/05/23 10:32 Glucose 1 Hr 50 gm 127 mg/dL (76-139) 08/18/17 12:08 Group B Strep (PCR) Neg for grp b strep 02/21/22 13:50 -: Chlamydia screen: negative, Gonorrhea screen: negative and Urine: negative -: PAP smear: Normal External Labs -: Urine: negative Prior (ies) Past Pregnancies Del. Date GA/Weeks Labor Lgth Wt Sex Route Outcome Anesthesia Place Delv Breastfeed Preg Comp Name 04/07/16 39 1 6 lb 8 oz Female vaginal live - full term none IH labor Ajay 10/02/17 36 5 lb Female live - spinal IH labor multiple gestation Grace Aneta 03/08/22 39.1 7 lb 15.7 oz Female live - ful l term [facility] Evaluation Evaluation Baseline heart rate: 120 Variability: Moderate (11-25) monitor accelerations: Present Monitor Decelerations: Absent Status: Category l [facility] Medical History (Updated 05/04/24 @ 20:18 by Sallie Horn MD) Infertility Anemia Vaginal delivery Premature labor in third trimester Surgical History (Updated 09/04/21 @ 15:39 by Sallie Horn MD) Anesthesia [place] teeth extracted (~2008) Delivery by section for breech presentation (~10/02/17) Family History (Updated 10/23/23 @ 09:09 by Ciara Urbina RN) Father Diabetes mellitus Heart disease Mother Pancreatic cancer Colon polyps Kidney stones Grandfather Colon cancer Grandmother Pneumonia Grandfather Heart disease Social History marital status: number of children: 4 household members: spouse, family (in-laws) and children lives independently: Yes caregiver/support person: Yes housing: house pets and animals: Yes (Wears gloves and particle mask when changing litter or cleaning bird cage.) education level: college (associate's degree) occupational status: employed current occupational exposures/hazards: No special jsoe needs: No travel history: recent (domestic only) seatbelt use: always water heater temp set < 120 deg: Yes (Will check and change if needed.) working smoke detector in home: Yes fire extinguisher in home: Yes carbon monox detector in home: Yes firearms in home: Yes firearms unloaded and locked: Yes do you feel safe at home: Yes Smoking Status: Never smoker second hand exposure: No alcohol intake: former (very occasionally when not ) substance use type: does not use during the past year weight has: remained stable well-balanced diet: about half the time daily servings fruits/ve-4 caffeine: Yes (~1-2 cups coffee or shots espresso daily) Type(s) of exercise: walking Meds Home Medications and Allergies Home Medications Medication Instructions Recorded Confirmed Type 1 tab PO DAILY 10/02/17 06/10/24 History Allergies Allergy/AdvReac Type Severity Reaction Status Date / Time Pertussis Vaccines Allergy Severe Seizure Verified 06/10/24 06:53 [PERTUSSIS VACCINES] cefazolin [From Ancef] Allergy Intermediate Hives Verified 06/10/24 06:53 amoxicillin [AMOXICILLIN] Allergy Mild Hives Verified 06/10/24 06:53 OB Exam Narrative Exam Narrative: Generally: Patient is sitting up in bed, no acute distress Lungs: Clear to auscultation bilaterally Cardiovascular: Regular rate and rhythm Fundal height: 40 cm Estimated weight: 7-1/2 lb Extremities: Trace edema Objective Labs 06/10/24 06:20 Labs: Laboratory Results - last 24 hr 06/10/24 06:20 WBC 8.2 RBC 4.49 Hgb 13.8 Hct 41.7 MCV 93.0 MCH 30.7 MCHC 33.0 RDW 13.9 Plt Count 142 L Neut % (Auto) 60.8 Lymph % (Auto) 30.2 [place] % (Auto) 7.5 Eos % (Auto) 1.1 L Baso % (Auto) 0.4 Neut # (Auto) 5000 Lymph # (Auto) 2500 [place] # (Auto) 600 Eos # (Auto) 100 Baso # (Auto) 0 Blood Type B Positive Antibody Screen Negative Assessment and Plan Assessment and Plan Assessment and Plan narrative: Assessment: 38-year-old 4 para 2104 at 39-,1/7 weeks gestation with 3 previous sections Desires permanent sterilization Plan: Repeat low-transverse section and bilateral salpingectomy The risks, benefits, and alternatives to the procedure were explained to the patient. The risks including bleeding, infection, injury to the bowel, bladder, or ureters. She understands these risks and agrees to proceed. A full par Q was held and consent form was signed. Time-Based Coding :: [TOTAL MINUTES] spent with patient and on the chart (including review of chart, obtaining history, exam, reviewing outside data, placing orders, documenting exam and treatment plan, and counseling patient) on [DATE].
--- NOTE | 2024-06-10 07:38 | PM.PREOP ---
Pre-operative Note Interval Note History & Physical reviewed/Exam performed by Physician: Yes Changes to H&P: No H&P completed within 30 days and has changed as indicated here:: 06/10/24
[2024-06-10] MEDS: CEFAZOLIN 2 GM/100 ML PREMIX 100 ML IV (07:59)
[2024-06-10] MEDS: ACETAMINOPHEN IV 1,000 MG/100 ML VIAL 400 MG IV (08:07)
--- NOTE | 2024-06-10 08:28 | SUR.OPER ---
baby born at 0895
[2024-06-10 09:40] VITALS: BP 89/68; PULSE 83; RESP 20; TEMP 36.3; O2SAT 100
--- NOTE | 2024-06-10 09:41 | P.OP_ITS ---
Operative Date/Time/Diagnoses Date of procedure: 06/10/24 Time of procedure: 09:41 Pre-op diagnosis: 39+1 weeks gestation Previous C section x 3 Desires permanent sterilization Post-op diagnosis: same Procedure & Clinicians Procedure: Repeat low transverse C section Bilateral salpingectomy Lysis of adhesions Same procedure as scheduled: Yes Indications: 38 year old with 3 prior C sections, who also desires permanent sterilization Surgeon: Sallie Trinh Yes if Unassisted: No Fretted Instrument Maker Hand: Madison Bhatia Reason for Fretted Instrument Maker Hand: The pharmacy affairs assistant was necessary to retract upon entry into the abdomen and uterus. She assisted with delivery of the infant with fundal pressure. She assisted with closure with retraction, clipping of suture, and closure of the contralateral fascia. Anesthesia Type: Spinal (with Duramorph) Operative Notes Findings: Live male Bilateral tubal adhesions Posterior uterine adhesions Closure Type: primary Specimen(s): cord blood, placenta and tubes/segments of tubes Intraoperative meds administered: Acetaminophen, Duramorph, Ketorolac and Pitocin Applied: Catheter (to continuous drainage) Estimated Blood Loss (mL): 800 Blood products transfused: none Procedure in detail: The patient was taken to the operating room where she was placed in the seated position. Spinal anesthesia with Duramorph was administered. The patient was then placed in the dorsal supine position with a leftward tilt. She was prepped and draped in the usual sterile fashion. A timeout was performed. After spinal analgesia was found to be adequate, the previous incisions were excised in an elliptical fashion and the incision was carried through to the underlying layer fascia. The fascia was nicked in the midline, and the incision extended bilaterally with the Rodriguez scissors. The superior aspect of the fascial incision was grasped with a [place] clamps, elevated, and the underlying rectus muscles dissected off sharply and bluntly. Attention was then turned to the inferior aspect of this incision which in a similar fashion was grasped with a [place]andra clamps, elevated, and the underlying rectus muscles dissected off sharply and bluntly. The rectus muscles were in the midline. The peritoneum was identified, grasped between 2 hemostats, and entered sharply with the Metzenbaum scissors. This incision was extended superiorly and inferiorly with good visualization of the bladder. The bladder blade was inserted. The vesicouterine peritoneum was identified, grasped with the pickup, and entered sharply with the Metzenbaum scissors. This incision was extended bilaterally, and the bladder flap was created digitally. The bladder blade was reinserted. The lower uterine segment was incised in a transverse fashion with the scalpel. Upon entering the amniotic sac there was moderate amount of clear amniotic fluid. The 's head was delivered without difficulty. The nose and mouth were suctioned with bulb suction. The remainder of the body delivered without difficulty. The cord was double clamped and cut. The infant was handed off to waiting RN and RT. The placenta was delivered by expression. The uterus was cleared of all clots and debris. The uterine incision was repaired with #1 chromic in a running interlocking fashion, and a second layer the same suture w as used for an imbricating layer. Hemostasis was achieved. The tubes were found to be adhered to the posterior uterus. There was decidual reaction also on the posterior uterus. The uterus was exteriorized. The left tube was grasped with Babcocks. Using the power seal, the mesosalpinx was cauterized and cut all the way down to the cornua of the uterus. The adhesions were also cauterized and cut. This was repeated on the patient's left tube. The uterus was returned to the abdomen. The gutters were cleared of all clots and debris. The bladder flap was reapproximated using 2-0 Vicryl in a running fashion. The parietal peritoneum was closed using 2-0 Vicryl in a running fashion. The fascia was reapproximated using 0 Vicryl in a running fashion. The subcutaneous layer was copiously irrigated with warm normal saline. 5 simple interrupted sutures of 3-0 Vicryl were placed to reapproximate the subcutaneous layer. The skin was closed with 4-0 Monocryl in a subcuticular fashion. Steri-Strips were placed. An ABD and Mediport tape were placed. The uterus was expressed of a small amount of old blood. Sponge, lap, and instrument counts were correct x-2. The patient tolerated the procedure well, and was taken to PACU in stable condition. Complications: none [place] Baby 1: Delivery Date: 07/08/24 Delivery Time: 08:26 Gender: Male Presentation: vertex Position: Right Occiput Transverse Placental Delivery Description: Expressed Cord Vessel Description: 3 Vessels and Clamped/Cut (after one minute) score (1 min): 9 score (5 min): 9 weight: 8 lb 9.4 oz Post-operative Condition: stable Disposition: PACU Aftercare: routine postop
[2024-06-10 09:46] VITALS: BP 89/56; PULSE 62; RESP 13; TEMP 36.1; O2SAT 100
[2024-06-10 09:52] VITALS: BP 89/52; PULSE 72; RESP 17; O2SAT 100
[2024-06-10 09:57] VITALS: BP 82/52; PULSE 57; RESP 9; O2SAT 100
[2024-06-10 10:00] VITALS: BP 95/56; PULSE 65; RESP 15; TEMP 36.1; O2SAT 100
[2024-06-10 11:43] LABS: Add Manual Diff / Slide Review NO; Basophils Absolute Auto 0 /uL (0-100); Basophils Percent Auto 0.3 % (0-2); Eosinophils Absolute Auto 0 /uL (0-450); Eosinophils Percent Auto 0.1 % (2-4); Hematocrit 32.3 % (36-46); Lymphocytes Absolute Auto 1100 /uL (1100-4500); Lymphocytes Percent Auto 10.1 % (25-40); Mean Corpuscular Hemoglobin 31.6 PG (26-34); Mean Corpuscular Volume 92.9 fL (80-100); Monocytes Absolute Auto 300 /uL (0-900); Monocytes Percent Auto 2.5 % (3-14); Neutrophils Absolute Auto 9500 /uL (1500-7000); Platelet Count 116 X10^3/uL (150-400); Red Blood Cell Count 3.48 X10^6/uL (4.0-5.2); Red Cell Distribution Width 14.2 % (11.6-14.8); White Blood Cell Count 10.9 X10^3/uL (4.5-11.0)
[2024-06-10] MEDS: KETOROLAC 30 MG/ML VIAL IV ×2 (15:06→21:13)
[2024-06-11] MEDS: KETOROLAC 30 MG/ML VIAL IV (03:35)
[2024-06-11] MEDS: ACETAMINOPHEN 325 MG TABLET 650 MG PO ×3 (06:00→19:59)
[2024-06-11 06:31] LABS: Hematocrit 28.5 % (36-46); Hemoglobin 9.7 g/dL (12.0-16.0)
[2024-06-11] MEDS: PRENATAL VIT,CALC/IRON/FOLIC 1 TABLET 1 TAB PO (08:43)
[2024-06-11] MEDS: DOCUSATE 100 MG CAPSULE PO (08:44)
[2024-06-11] MEDS: IBUPROFEN 600 MG TABLET PO ×3 (09:43→23:56)
[2024-06-12] MEDS: ACETAMINOPHEN 325 MG TABLET 650 MG PO ×2 (02:24→10:03)
[2024-06-12] MEDS: IBUPROFEN 600 MG TABLET PO ×2 (05:47→11:56)
[2024-06-12] MEDS: PRENATAL VIT,CALC/IRON/FOLIC 1 TABLET 1 TAB PO (10:04)
[2024-06-12] MEDS: DOCUSATE 100 MG CAPSULE PO (10:04)
--- NOTE | 2024-06-12 10:38 | PM.OBPN.1 ---
Subjective - OB Subjective Patient comments: no complaints, pain well controlled, tolerating diet, flatus present and other (Able to void spontaneously) baby status: doing well and bottle feeding well [place] feeding status: exclusively bottle feeding Date Patient Seen: 07/09/24 Time Patient Seen: 13:00 Interval history: Postop day # 1 status post repeat low-transverse section and bilateral salpingectomy. She also had extensive lysis of adhesions. Exam Vital Signs (past 8 hours): Oxygen Delivery Method Room Air Narrative Exam Narrative: Generally: Sitting up in bed, no acute distress Lungs: Clear to auscultation bilaterally Cardiovascular: Regular rate and rhythm Fundus: Firm at U -1 Extremities: 1+ edema, negative Homans Objective Labs 06/11/24 06:09 Assessment & Plan Plan day: 1 plan OB: routine postop care Time-Based Coding :: [TOTAL MINUTES] spent with patient and on the chart (including review of chart, obtaining history, exam, reviewing outside data, placing orders, documenting exam and treatment plan, and counseling patient) on [DATE].
--- NOTE | 2024-06-12 10:41 | P.DS_ITS ---
Discharge Providers Provider Date of admission: 06/10/24 05:44 Discharge Date: 06/12/24 Consults: 06/10/24 10:56 Consult to Team Facilitator Routine Comment: Discharge provider: Sallie Horn MD Summary Hospital Course Date Patient Seen: 06/12/24 Time Patient Seen: 10:42 Diagnoses: 39+ 1 week's gestation 3 previous sections Desires permanent sterilization Repeat low transverse section Bilateral salpingectomy Lysis of adhesions Hospital Course: Patient is a 38-year-old 4 para 4005 who presented on June 10, 2024 for a scheduled repeat section at 39+ 1 week's gestation. She underwent this procedure without complication. She did have some adhesions on the fallopian tubes which were taken down at the time of the . On postop day # 1 her Caneal catheter was removed and she was able to void spontaneously. Her pain has been managed with Tylenol and ibuprofen only. She is ambulating without assistance. She has tolerating a diet. No nausea or vomiting. She is bottle feeding. Peripartum Data Delivery Method: Section Procedures: Spinal anesthesia with Duramorph Repeat low-transverse section Bilateral salpingectomy Lysis of adhesions complications: none 1: Gender: Male Disposition of : home Status at Discharge Cognitive/behavioral status at discharge: oriented Functional status at discharge: independent ambulation Overall status at discharge: patient is progressing back to baseline Time Spent with Patient Time attestation: Total time spent providing and/or coordinating discharge services: Time spent: Less than 30 minutes Objective Labs 06/11/24 06:09 Exam Vital Signs (past 8 hours): Oxygen Delivery Method Room Air Narrative Exam Narrative: Generally: Patient is sitting on side of the bed, holding , no acute distress Fundus: Firm at U -1 Extremities: 1+ edema, negative Homans Discharge Plan Discharge Plan Patient Disposition: Home Provider Discharge Comment: Call with fever, chills, or redness or drainage around the incision Ibuprofen 600 mg every 6 hours for the first few days and then every 6 hours as needed Tylenol 650 mg every 6 hours for the first few days and then every 6 hours as needed Stool softeners as needed Tight sports bra Discharge orders & Medications Prescriptions: Continued 1 tab tablet 1 tab PO DAILY Follow up/Referrals: Sallie Horn MD [Physician] - 07/23/24 2:00 pm (My office will call on Friday to schedule 2 wk post op Please follow up for your 6 week check up on Tuesday July 23, 2024 @ 2:00 pm. Please arrive at 1:45 pm!) Diet/Activity/Treatments Diet: Regular Activity: No heavy lifting Nothing in the vagina for 6 weeks Skin/Wound/Dressing Care Report to your healthcare provider any signs of infection, such as:: chills, fever, increased pain, unusual drainage and unusual redness Dressing: Leave Steri-Strips on for 2 weeks Visit Report/Discharge Packet Instructions: DI for Stand Alone Forms: Patient Portal/API, Stroke Signs & Symptoms
[2024-06-12 11:28] VITALS: BP 101/65; PULSE 86; RESP 17; TEMP 36.1
[2024-06-12 11:56] VITALS: TEMP 36.1
== END 2024-06-12 12:10 | disposition home or self-care (01) | DRG 785 ==
PROVIDERS: Admitting Provider Obstetrics & Gynecology; Family Provider Specialist; Referring Provider Obstetrics & Gynecology; Visit Provider Obstetrics & Gynecology
PROC: 10D00Z1 Extraction of Products of Conception, Low, Open Approach (ICD-10-PCS; CPT 59514; principal; 2024-06-10 07:45)
DX: O34.211 Maternal care for low transverse scar from previous cesarean delivery (principal); Z3A.39 39 weeks gestation of pregnancy; Z37.0 Single live birth; Z30.2 Encounter for sterilization; N73.6 Female pelvic peritoneal adhesions (postinfective)
CPT/HCPCS: 36415; 58611; 59050; 59510; 59514; 85014; 85018; 85025; 86850; 86900; 86901; J0134; J0690; J1100; J1885; J2274; J2405